=== PATIENT | female | born 1995 | race Caucasian/White ===

== ENCOUNTER 2016-11-15 10:45 | Emergency (ER) | payer OTHER ==
[2016-11-15 10:55] VITALS: BP 107/78; PULSE 72; RESP 16; TEMP 97.7; O2SAT 97
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
== END 2016-11-15 12:38 | disposition home or self-care (01) ==
DX: S16.1XXA Strain of muscle, fascia and tendon at neck level, initial encounter (principal); V89.2XXA Person injured in unspecified motor-vehicle accident, traffic, initial encounter; Y92.410 Unspecified street and highway as the place of occurrence of the external cause